=== PATIENT | male | born 1980 | race Two or more races ===

== ENCOUNTER 2021-06-29 14:22 | Emergency (ER) | payer MEDICAID ==
[~2021-06-29] VITALS: Ht 175.3 cm; Wt 82.0 kg
[2021-06-29 15:23] LABS: BASOPHILS % 0.5 % (0.0-2.0); EOSINOPHILS % 2.7 % (0.0-5.0); HEMATOCRIT. 32.2 % (42.0-52.0); LYMPHOCYTES % 15.6 % (20.0-50.0); MEAN CORPUSCULAR HEMOGLOBIN 32.9 pg (28.0-32.0); MEAN CORPUSCULAR VOLUME 96.6 fL (80.0-94.0); MEAN PLATELET VOLUME 8.2 fl (7.4-10.4); MONOCYTES % 6.2 % (2.0-8.0); PLATELET 130 x1000/uL (130-400); RED BLOOD CELL COUNT 3.34 mill/uL (4.7-6.1); RED CELL DISTRIBUTION WIDTH 15.7 % (11.6-14.6)
[2021-06-29 15:32] LABS: CHLORIDE 102 mEq/L (98-107)
[2021-06-29] MEDS ORDERED: ALBUTEROL (0.083%) 2.5MG/3ML NEB HHN NR (15:45)
[2021-06-29] MEDS ORDERED: CALCIUM CHLORIDE 1GM/10ML SYR IV NR (15:45)
[2021-06-29] MEDS ORDERED: DEXTROSE 50% WATER 50ML SYRINGE IV NR (15:45)
[2021-06-29] MEDS ORDERED: SODIUM POLYSTYRENE SULFONATE 15 G/60 ML BOT PO NR (15:45)
[2021-06-29] MEDS ORDERED: INSULIN REGULAR (HUMULIN R) 300UNITS/3ML VIAL IV NR ×2 (15:45→17:45)
[2021-06-29 16:34] LABS: HEPATITIS B SURFACE ANTIGEN NEGATIVE
[2021-06-29 20:00] VITALS: BP 162/84
== END 2021-06-29 21:14 | disposition left against medical advice (07) ==
LOC: ER 14:37
DX: E87.70 Fluid overload, unspecified (principal); I12.0 Hypertensive chronic kidney disease with stage 5 chronic kidney disease or end stage renal disease; N18.6 End stage renal disease; E87.5 Hyperkalemia; E78.00 Pure hypercholesterolemia, unspecified; Z91.030 Bee allergy status
CPT/HCPCS: 36415; 71045; 80053; 82962; 85025; 86705; 86709; 86803; 87340; 93005; 96374; 96375; 99291; J1815; J3490